=== PATIENT | male | born 1995 | race Caucasian/White ===

== ENCOUNTER 2017-08-27 19:50 | Emergency (ER) | payer OTHER ==
[~2017-08-27] VITALS: Ht 177.8 cm; Wt 61.2 kg
[~2017-08-27 19:50] MED LIST: HUMALOG100 UNIT/1 SC
[2017-08-27 20:06] VITALS: BP 123/80
--- NOTE | 2017-08-27 20:32 | ED GENERAL ADULT ---
History of Present Illness General Chief Complaint: Eye Problems Stated Complaint: [facility], "SOMETHING IN EYE" Source: patient Exam Limitations: no limitations Allergies Coded Allergies: NO KNOWN ALLERGIES (05/11/15) Reconcile Medications Insulin Lispro (Humalog) 100 UNIT/1 ML CARTRIDGE INSULIN PUMP (Reported) Ketorolac Tromethamine 0.4 % DROPS 1 GTT OS 4 TIMES/DAY PRN pain Moxifloxacin Hydrochloride (Vigamox) 0.5 % DROPS 1 GTT OS TID corneal abrasion Triage Note: 22M TO ED FROM URGENT CARE FOR UNKNOWN FOREIGN BODY TO EYE, FIRST NOTICED PAIN AROUND 4:30. DENIES VISION CHANGE. STATES THE URGENT CARE ATTEMPTED TO EXTRACT THE OBJECT WITHOUT SUCCESS. Triage Nurses Notes Reviewed? yes Onset: Gradual Duration: hour(s): Timing: constant HPI: 22-year-old male with a history of diabetes presenting with a foreign body to his left eye of unknown duration. Patient began to feel pain within his left eye several hours prior to arrival. Was seen at an urgent care for evaluation who noted a foreign body to his left eye. They attempted to extract the foreign body both with cotton swab and an 18-gauge needle without success. He was then referred into the emergency department for evaluation. Patient denies any eye trauma or incident of foreign bodies entering his eye. Is unsure how long the foreign body has been present. Unsure of his last tetanus. Patient wears eyeglasses at baseline, no contacts. Denies any visual changes, eye discharge, or fevers. (Janet Calero) Vital Signs & Intake/Output Vital Signs & Intake/Output ED Intake and Output 08/28 0000 08/27 1200 Intake Total Output Total Balance Patient 135 lb Weight (Mel JACK,Kvng Eckert) Past History Travel History Traveled to [place] past 21 day No Medical History Any Pertinent Medical History? see below for history Neurological: NONE EENT: NONE Cardiovascular: NONE Respiratory: NONE Gastrointestinal: NONE Hepatic: NONE Renal: NONE Musculoskeletal: NONE Psychiatric: NONE Endocrine: Diabetes type 1 Blood Disorders: NONE Cancer(s): NONE [employer]/Reproductive: NONE History of MRSA: No History of VRE: No History of CDIFF: No Tetanus Vaccine: 04/20/13 Surgical History Surgical History: non-contributory Psychosocial History Who do you live with Family Services at Home None What is your primary language Turkish Tobacco Use: Current Daily Use Daily Tobacco Use Amount/Type: => 5 Cigarettes daily Family History Family History, If Any: BROTHER Relation not specified for: FH: type 1 diabetes mellitus Hx Contributory? No (Janet Calero) Review of Systems Review of Systems Constitutional: Reports: no symptoms. EENTM: Reports: see HPI. Respiratory: Reports: no symptoms. Cardiovascular: Reports: no symptoms. GI: Reports: no symptoms. Genitourinary: Reports: no symptoms. Musculoskeletal: Reports: no symptoms. Skin: Reports: no symptoms. Neurological/Psychological: Reports: no symptoms. Hematologic/Endocrine: Reports: no symptoms. Immunologic/Allergic: Reports: no symptoms. All Other Systems: Reviewed and Negative (Janet Calero) Physical Exam Physical Exam General Appearance: well developed/nourished, no apparent distress, alert, awake , comfortable Head: atraumatic, normal appearance Eyes: Bilateral: PERRL, EOMI. Neck: normal inspection Respiratory: normal breath sounds, lungs clear Cardiovascular: regular rate/rhythm Gastrointestinal: soft, non-tender Back: normal inspection Extremities: normal inspection Neurologic/Psych: awake, alert, oriented x 3, normal gait, normal mood/affect Skin: intact, normal color, warm/dry Comments: On exam of the left eye there is a metallic foreign body at the 7 o'clock position on the cornea over the iris. There is a surrounding rust ring. The pupil is round and reactive. EOMs are unrestricted. There is no ocular discharge. Visual acuity is 20/25. Core Measures ACS in differential dx? No CVA/TIA Diagnosis: No Sepsis Present: No Sepsis Focused Exam Completed? No (Janet Calero) Progress Differential Diagnoses I considered the following diagnoses in my evaluation of the patient: [Corneal foreign body versus corneal abrasion, low concern for scleritis versus episcleritis versus iritis/uveitis versus conjunctivitis] Plan of Care: Current Medications Sig/Simone Start time Last Medication Dose Stop Time Status Admin Tetanus/Diphtheria 0.5 ML ONCE ONE 08/27 2099 AC Toxoids Adsorbed 08/27 2100 (Decavac) Metallic foreign body was removed using an 18-gauge needle with success on first attempt. There is a visible rust ring on slit lamp exam. Patient was instructed that he will need to follow-up with ophthalmology tomorrow. Given Rx Vigamox and Toradol drops. Tetanus was updated. Counseled on supportive care and strict return precautions. Initial ED EKG: none (Janet Calero) Departure Departure Disposition: HOME OR SELF CARE Condition: Stable Clinical Impression Primary Impression: Corneal foreign body Secondary Impressions: Corneal abrasion, Corneal rust ring Referrals: Damon JACK,José Manuel Trejo (PCP/Family) Ab JACK,Cecil Aj Additional Instructions: Use Vigamox drops as prescribed. Use ketorolac drops as needed for pain. Follow-up with ophthalmology for reevaluation tomorrow. Return to the emergency department for any new or worsening symptoms. Departure Forms: Customer Survey General Discharge Information Prescriptions: Current Visit Scripts Moxifloxacin Hydrochloride (Vigamox) 1 GTT OS TID #3 ML Ketorolac Tromethamine 1 GTT OS 4 TIMES/DAY PRN pain #5 ML (Janet Calero) Procedures Eye Procedure Eye Procedure: Remaining Material Aft FB Flo rust ring Progress: Patient's metallic foreign body removed with an 18-gauge needle without difficulty by me (Kvng Leal M.D.). Of note the patient's metallic foreign body was located inferior and lateral to the patient's residual rust ring. (Mel JACK,Kvng Eckert) Critical Care Note Critical Care Note Critical Care Time: non-applicable (Janet Calero)
[2017-08-27] MEDS ORDERED: VIGAMOX3 ML OS (20:57)
[2017-08-27] MEDS ORDERED: KETOROLAC TROMET5 ML OS (20:57)
== END 2017-08-27 21:10 ==
LOC: ERH 19:50
DX: T15.02XA Foreign body in cornea, left eye, initial encounter (principal); S05.02XA Injury of conjunctiva and corneal abrasion without foreign body, left eye, initial encounter
CPT/HCPCS: 90471; 90714